=== PATIENT | male | born 1985 | race Caucasian/White ===

== ENCOUNTER 2018-05-19 17:06 | Emergency (ER) | payer SELFPAY ==
[~2018-05-19] VITALS: Ht 160 cm; Wt 50.0 kg
[2018-05-19 17:21] VITALS: Ht 160 cm; Wt 50.0 kg
[2018-05-19] MEDS ORDERED: ADVIL200 MG PO (17:23)
[2018-05-19 18:56] LABS: BASOPHILS 0.6 % (0-2); EOSINOPHILS 3.9 % (0-7); HEMATOCRIT 46.2 % (42.0-54.0); HEMOGLOBIN 15.4 g/dL (13.5-17.5); IMMATURE GRANULOCYTES 0.1 % (0-5); LYMPHOCYTES 42.4 % (15-50); MCH 32.4 pg (26.0-34.0); MCHC 33.3 g/dL (31.0-37.0); MCV 97.1 fL (80.0-100.0); MEAN PLATELET VOLUME 10.7 fL (7.4-10.4); MONOCYTES 6.8 % (2-11); NEUTROPHILS 46.2 % (40-80); PLATELET COUNT 242 10x3/uL (130-400); RBC 4.76 10x6/uL (4.20-6.10); RDW 13.2 % (11.5-14.5); WBC 8.2 10x3/uL (4.8-10.8)
[2018-05-19 19:14] LABS: ALBUMIN 4.1 g/dL (3.4-5.0); ALKALINE PHOSPHATASE 125 U/L (46-116); ALT (SGPT) 22 U/L (10-68); AMYLASE - SERUM 73 U/L (25-115); BILIRUBIN - TOTAL 0.21 mg/dL (0.2-1.3); CALC OSMOLALITY 275 mosm/kg (275-300); CALCIUM 8.8 mg/dL (8.5-10.1); CARBON DIOXIDE 25.9 mmol/L (21.0-32.0); CHLORIDE - SERUM 102 mmol/L (98-107); GLUCOSE 95 mg/dL (74-106); LIPASE 68 U/L (73-393); POTASSIUM - SERUM 4.2 mmol/L (3.5-5.1); PROTEIN - SERUM 7.9 g/dL (6.4-8.2); SODIUM 136 mmol/L (136-145); UREA NITROGEN 24 mg/dL (7-18); eGFR NON AFRICAN AMERICAN > 90 mL/min (90-120)
[2018-05-19 19:15] LABS: APPEARANCE CLEAR (CLEAR); BILIRUBIN NEGATIVE (NEGATIVE); COLOR YELLOW (YELLOW); GLUCOSE NEGATIVE (NEGATIVE); KETONE NEGATIVE (NEGATIVE); NITRITE NEGATIVE (NEGATIVE); PROTEIN NEGATIVE (NEGATIVE); SPECIFIC GRAVITY 1.015 (1.005-1.020); UROBILINOGEN NORMAL (NORMAL)
[2018-05-19 19:18] LABS: BACTERIA FEW /hpf (NONE SEEN); EPITHELIAL CELLS 0-5 /hpf (0-5); RED CELLS - URINE 0-5 /hpf (0-5); WHITE CELLS - URINE 0-5 /hpf (0-5)
[2018-05-19] MEDS ORDERED: PROTONIX40 MG PO (22:37)
[2018-05-19] MEDS ORDERED: ZOFRAN ODT4 MG/UDTAB PO (22:37)
[2018-05-19 23:00] VITALS: BP 132/79
== END 2018-05-19 23:00 | disposition home or self-care (01) ==
LOC: D.ER 17:06
PROVIDERS: Family Medicine
DX: K29.70 Gastritis, unspecified, without bleeding (principal)

== ENCOUNTER 2018-06-05 21:15 | Inpatient (IN) | payer MEDICAID ==
[~2018-06-05] VITALS: Ht 160 cm; Wt 45.0 kg
[~2018-06-05 21:15] MED LIST: ADVIL200 MG PO; PROTONIX40 MG PO; ZOFRAN ODT4 MG/UDTAB PO
--- NOTE | 2018-06-05 21:41 | NUR ---
MARCELO LEE APPLIED TO PT.
--- NOTE | 2018-06-05 22:17 | NUR ---
SANDWICH TRAY AND DRINK PROVIDED TO PT. DENIES ANY OTHER NEEDS AT PRESENT
[2018-06-05 22:26] LABS: BASOPHILS 0.1 % (0-2); EOSINOPHILS 0 % (0-7); HEMATOCRIT 43.2 % (42.0-54.0); HEMOGLOBIN 14.7 g/dL (13.5-17.5); IMMATURE GRANULOCYTES 0.3 % (0-5); LYMPHOCYTES 4.6 % (15-50); MCH 32.3 pg (26.0-34.0); MCV 94.9 fL (80.0-100.0); MEAN PLATELET VOLUME 11.1 fL (7.4-10.4); MONOCYTES 4.1 % (2-11); NEUTROPHILS 90.9 % (40-80); PLATELET COUNT 239 10x3/uL (130-400); RBC 4.55 10x6/uL (4.20-6.10); RDW 13.5 % (11.5-14.5); WBC 17.9 10x3/uL (4.8-10.8)
[2018-06-05 22:43] LABS: ALBUMIN 4.5 g/dL (3.4-5.0); ANION GAP 29.4 mmol/L (8-16); BILIRUBIN - TOTAL 0.67 mg/dL (0.2-1.3); CALCIUM 8.4 mg/dL (8.5-10.1); CARBON DIOXIDE 16.3 mmol/L (21.0-32.0); CREATININE - SERUM 1.7 mg/dL (0.6-1.3); POTASSIUM - SERUM 4.7 mmol/L (3.5-5.1); PROTEIN - SERUM 8.1 g/dL (6.4-8.2)
[2018-06-06 00:31] LABS: CREATINE KINASE 2179 UL (21-232)
[2018-06-06 00:32] LABS: CKMB 20.2 U/L (0.0-3.6)
[2018-06-06 00:50] VITALS: BP 110/75
--- NOTE | 2018-06-06 01:16 | NUR ---
REPORT RECEIVED FROM ALEX LEES.
[2018-06-06 04:55] VITALS: BP 109/63
--- NOTE | 2018-06-06 06:30 | NUR ---
NO CHANGES FROM PREVIOUS ASSESSMENT. CALL LIGHT IN REACH.
[2018-06-06 08:23] VITALS: BP 111/55
--- NOTE | 2018-06-06 10:33 | NUR ---
IV PATENT. CALL LIGHT IN REACH. WILL CONT. PLAN OF CARE.
[2018-06-06 12:42] VITALS: BP 101/62
[2018-06-06 14:54] VITALS: Ht 160 cm; Wt 45.0 kg
[2018-06-06 15:30] VITALS: BP 110/68
[2018-06-06 15:48] LABS: BASOPHILS 0.1 % (0-2); EOSINOPHILS 0.7 % (0-7); HEMATOCRIT 39.3 % (42.0-54.0); HEMOGLOBIN 13.2 g/dL (13.5-17.5); IMMATURE GRANULOCYTES 0.2 % (0-5); LYMPHOCYTES 23.7 % (15-50); MCH 32.2 pg (26.0-34.0); MCHC 33.6 g/dL (31.0-37.0); MCV 95.9 fL (80.0-100.0); MEAN PLATELET VOLUME 11.3 fL (7.4-10.4); MONOCYTES 9.2 % (2-11); NEUTROPHILS 66.1 % (40-80); PLATELET COUNT 224 10x3/uL (130-400); RDW 13.8 % (11.5-14.5)
[2018-06-06 15:54] LABS: WBC 12.1 10x3/uL (4.8-10.8)
[2018-06-06 16:34] LABS: CKMB 28.6 U/L (0.0-3.6); CREATINE KINASE 6113 UL (21-232)
--- NOTE | 2018-06-06 17:57 | MORECARE ---
CASE MANAGEMENT DISCHARGE SUMMARY PATIENT: BERENICE MEDEIROS DON UNIT: [id number] ADM DATE: 06/06/18 AGE: 32 : 89 SEX: M ROOM/BED: D.2131 AUTHOR: MALATHI OSPINA PHYSICIAN: REFERRING PHYSICIAN: GUILLE MARTIN DO DATE OF SERVICE: 06/06/18 Discharge Plan Patient Name: BERENICE MEDEIROS [facility] [facility] 1985 Planned Disposition: Home Anticipated Discharge Date: 06/07/18 Discharge Date: Expected LOS: 1 Initial Reviewer: [email or web address] Initial Review Date: 06/06/2018 Generated: 06/06/18 6:57 pm DCPIA - Discharge Planning Initial Assessment Updated by [email or web address]: Bradly Tolentino on 06/06/18 5:57 pm * Is the patient Alert and Oriented? Yes * How many steps to enter\\exit or inside your home? NONE * PCP NONE * Pharmacy NONE * Preadmission Environment Homeless * Other Environment HOMELESS, REPORTS LIVING IN "[facility]" * Facility Name NONE * ADLs Independent * Equipment None * Other Equipment NO MEDICAL EQUIPMENT PROVIDER PREFERENCE * List name and contact numbers for known caregivers / representatives who currently or will assist patient after discharge: NONE PER PATIENT * Verbal permission to speak to the caregivers and representatives has been obtained from the patient. N/A * Community resources currently utilized None * Please name any agencies selected above. NONE * Additional services required to return to the preadmission environment? No * Can the patient safely return to the preadmission environment? Yes * Has this patient been hospitalized within the prior 30 days at any hospital? No Patient Name: BERENICE MEDEIROS Page [phone] at 1757 All edits/amendments must be made on the electronic document DICTATION DATE: 06/06/181755 PRODUCT DESIGNER: SHANNAN 06/06/181755 RPT#: [id number] DC DATE: STATUS: ADM IN [facility] [address] [place] [address] END OF REPORT
--- NOTE | 2018-06-06 18:10 | MORECARE ---
CASE MANAGEMENT DISCHARGE SUMMARY PATIENT: BERENICE MEDEIROS DON UNIT: [id number] ADM DATE: 06/06/18 AGE: 32 : 89 SEX: M ROOM/BED: D.2137 AUTHOR: BHAVESH,DOC PHYSICIAN: REFERRING PHYSICIAN: GUILLE MARTIN DO DATE OF SERVICE: 06/06/18 Discharge Plan Patient Name: BERENICE MEDEIROS Facility: [facility]:[place] : 1985 Planned Disposition: Home Anticipated Discharge Date: 06/07/18 Discharge Date: Expected LOS: 1 Initial Reviewer: [email or web address] Initial Review Date: 06/06/2018 Generated: 06/06/18 7:10 pm Comments DCP- Discharge Planning Updated by [id number]: Bradly Tolentino on 06/06/18 5:[address] Patient Name: BERENICE MEDEIROS Admission Status: ER Accout number: [id number] Admission Date: 06-06-2018 : 1985 Admission Diagnosis: Attending: GUILLE MARTIN Current LOS: 1 Anticipated DC Date: 06-07-2018 Planned Disposition: Home Primary Insurance: MEDICAID [place] Discharge Planning Comments: CM RECEIVED CONSULT FOR HOMLESSNESS. CM MET WITH PT IN ROOM TO DISCUSS DISCHARGE PLANNING AND NEEDS. PT REPORTS LIVING IN THE [facility] FOR MONTHS, HAS BEEN HOMELESS FOR " A WHILE." PT USES NO MEDICAL EQUIPMENT. PT REPORTS HAVING NO [place] ID AND HE NEEDS TO GET ONE HE HAS A [place] ID NOW. PT DENIES HAVING FUNDS TO ASSIST HIMSELF, PT REPORTS HE HAS NO FAMILY OR FRIENDS TO ASSIST AT DISCHARGE. CM DISCUSSED AVAILABILITY OF INTERMEDIATE AT [facility] IN [place]. PT STATES AWARENESS OF THE INTERMEDIATE, REPORTS "THAT'S LIKE A LONG-TERM". PT WILL NOT RETURN TO THE INTERMEDIATE. CM OFFERED TO LOOK FOR INTERMEDIATE OUTSIDE OF [place], PT REFUSED. PT IS NOT SURE HOW LONG HE WILL BE STAYING IN [place]. CM DISCUSSED EMERGENCY ASSISTANCE, FOOD PANTRY AND HOT MEAL DAILY AT [facility], PT REPORTS HE IS AWARE OF RESOURCE. CM PROVIDED PT WITH [facility] ADDRESS WELL CONTACT FOR [facility] OUT OF POVERTY PROGRAM. PT DID NOT VERBALIZE INTEREST, CM LET INFORMATION ANYWAY. PT HAS NO PRIMARY DOCTOR, BUT DOES HAVE MEDICAID IN [place]. CM PROVIDED [facility] INFORMATION. CM ASKED PT HOW HE IS TRANSPORTING WHEN HE LEAVES, PT REPORTS WALKING BUT HE HAS NO SHOES AND WEARS SIZE 9. CM WILL PROVIDE PT WITH A BUS PASS AT DISCHARGE. PT HAS DECLINED INTERMEDIATE PLACEMENT ASSISTANCE, REFUSES TO STAY AT THE [facility] SAYING IT IS LIKE A LONG-TERM. CM PROVIDED PT WITH LOCAL RESOURCE INFORMATION. CM TO FOLLOW AND ASSIST NEEDED. Permastone Installer: Bradly Tolentino DCPIA - Discharge Planning Initial Assessment Updated by [id number]: Bradly Tolentino on 06/06/18 5:57 pm * Is the patient Alert and Oriented? Yes * How many steps to enter\\exit or inside your home? NONE * PCP NONE * Pharmacy NONE * Preadmission Environment Homeless * Other Environment HOMELESS, REPORTS LIVING IN "[facility]" * Facility Name NONE * ADLs Independent * Equipment None * Other Equipment NO MEDICAL EQUIPMENT PROVIDER PREFERENCE * List name and contact numbers for known caregivers / representatives who currently or will assist patient after discharge: NONE PER PATIENT * Verbal permission to speak to the caregivers and representatives has been obtained from the patient. N/A * Community resources currently utilized None * Please name any agencies selected above. NONE * Additional services required to return to the preadmission environment? No * Can the patient safely return to the preadmission environment? Yes * Has this patient been hospitalized within the prior 30 days at any hospital? No Last DP export: 06/06/18 4:57 p Patient Name: BERENICE MEDEIROS Page [phone] at 1810 All edits/amendments must be made on the electronic document DICTATION DATE: 06/06/181808 SKIMMER REVERBERATORY: SHANNAN 06/06/181808 RPT#: [id number] [place] DATE: STATUS: ADM IN [facility] [address] [place] [address] END OF REPORT
--- NOTE | 2018-06-06 19:15 | NUR ---
RESUMING CARE. PT LAYING IN BED A&O RR EVEN/UNLABORED, LFT AC WITH NS @125, ON RA NO C/O PAIN OR DISTRESS NOTED CL IN REACH WILL CONT TO MONITOR
[2018-06-06 20:00] VITALS: BP 108/72
[2018-06-07] VITALS: BP 101/53
--- NOTE | 2018-06-07 02:55 | NUR ---
LYING IN BED, CALL LIGHT IN REACH. WILL CONTINUE WITH PLAN OF CARE. 83 SR ON TELEMETRY
--- NOTE | 2018-06-07 04:13 | NUR ---
RESITED IV TO RT FA
--- NOTE | 2018-06-07 07:10 | NUR ---
REPORT RECEIVED FROM LEGAL LIBRARIAN. PATIENT LAYING IN BED WITH EYES CLOSED AND BREATHING EVENLY. SR UP X 2 BED IN LOW POSITON AND CALL LIGHT IN REACH. WILL CONTINUE WITH PLAN OF CARE.
--- NOTE | 2018-06-07 07:15 | NUR ---
REPORT RECIEVED FROM TOWNSHIP SUPERVISOR. PATIENT LAYING IN BED WITH EYES CLOSED AND BREATHING EVENLY. SR UP X 2 . BED IN LOW PSOTION AND CALL LIGHT IN REACH.
[2018-06-07 07:51] LABS: BASOPHILS 0.4 % (0-2); EOSINOPHILS 2.3 % (0-7); HEMATOCRIT 34.3 % (42.0-54.0); HEMOGLOBIN 11.3 g/dL (13.5-17.5); IMMATURE GRANULOCYTES 0.1 % (0-5); LYMPHOCYTES 47.5 % (15-50); MCH 31.5 pg (26.0-34.0); MCHC 32.9 g/dL (31.0-37.0); MCV 95.5 fL (80.0-100.0); NEUTROPHILS 37.7 % (40-80); PLATELET COUNT 196 10x3/uL (130-400); RBC 3.59 10x6/uL (4.20-6.10); RDW 13.8 % (11.5-14.5)
[2018-06-07 08:14] VITALS: BP 107/68
[2018-06-07 08:14] LABS: WBC 7.4 10x3/uL (4.8-10.8)
--- NOTE | 2018-06-07 08:41 | MORECARE ---
CASE MANAGEMENT DISCHARGE SUMMARY PATIENT: BERENICE MEDEIROS DON UNIT: [id number] ADM DATE: 06/06/18 AGE: 32 : 89 SEX: M ROOM/BED: D.2132 AUTHOR: MALATHI OSPINA PHYSICIAN: REFERRING PHYSICIAN: GUILLE MARTIN DO DATE OF SERVICE: 06/07/18 Discharge Plan Patient Name: BERENICE MEDEIROS Facility: [facility]:[place] : 1985 Planned Disposition: Home Anticipated Discharge Date: 06/07/18 Discharge Date: Expected LOS: 1 Initial Reviewer: [email or web address] Initial Review Date: 06/06/2018 Generated: 06/07/18 9:41 am Comments DCP- Discharge Planning Updated by [email or web address]: Bradly Tolentino on 06/07/18 7:[address] Patient Name: BERENICE MEDEIROS Encounter No: [id number] : 1985 Primary Insurance: MEDICAID [place] Anticipated DC Date: 06-07-2018 Planned Disposition: Home DCP follow-up note: CM SPOKE TO PT IN ROOM REGARDING DISCHARGE PLANNING. PT IS STILL REFUSING DETENTION PLACEMENT OUT OF [place] AREA AND WILL NOT GO TO [facility]. PT IS AWARE OF LOCAL DETENTION AND RESOURCES AVAILABLE TO HIM. PT REPORTS PLAN OF CONTINUED HOMELESSNESS AT DISCHARGE. PT DOES NOT HAVE AN INCOME, DOES NOT RECEIVE FOOD STAMPS, DISABILITY OR UNEMPLOYMENT. PT IS NOT EMPLOYED. PT REPORTS HE LIVES WITH WHAT HE CAN GET FROM LOCAL ORGANIZATIONS. PT HAS BEEN PROVIDED WITH LOCAL NEWSPAPER FOR TODAY. CM PROVIDED PT WITH A PAIR OF SHOES PT REPORTED HE HAS NONE. CM PROVIDED PT WITH AN OLD BUT SERVICEABLE UMBRELLA AND THREE LARGE TRASH BAGS. CM EXPLAINED HOW TO USE PLASTIC BAGS FOR A RAIN PONCHO, DETENTION SHYLA AND DETENTION DAVE IF NEEDED. CM PROVIDED ONE BUS PASS SO PT CAN GET BACK TO [facility] [place] AND COMMUNITY RESOURCE ORGANIZATIONS THAT PT IS UTILIZING AT DISCHARGE. PT DOES HAVE [place] MEDICAID. PT REFUSES DETENTION PLACEMENT. PT IS AWARE OF COMMUNITY RESOURCES. CM HAS PROVIDED PT WITH INFORMATION AND MATERIALS TO ASSIST HIMSELF. NO FURHTER DISCHARGE NEEDS IDENTIFIED AT THIS TIME. Bradly Tolentino, CASE MANAGEMENT DCP- Discharge Planning Updated by [id number]: Bradly Tolentino on 06/06/18 5:[address] Patient Name: BERENICE MEDEIROS Admission Status: ER Accout number: [id number] Admission Date: 06-06-2018 : 1985 Admission Diagnosis: Attending: GUILLE MARTIN Current LOS: 1 Anticipated DC Date: 06-07-2018 Planned Disposition: Home Primary Insurance: MEDICAID [place] Discharge Planning Comments: CM RECEIVED CONSULT FOR HOMLESSNESS. CM MET WITH PT IN ROOM TO DISCUSS DISCHARGE PLANNING AND NEEDS. PT REPORTS LIVING IN THE [facility] FOR MONTHS, HAS BEEN HOMELESS FOR " A WHILE." PT USES NO MEDICAL EQUIPMENT. PT REPORTS HAVING NO [place] ID AND HE NEEDS TO GET ONE HE HAS A [place] ID NOW. PT DENIES HAVING FUNDS TO ASSIST HIMSELF, PT REPORTS HE HAS NO FAMILY OR FRIENDS TO ASSIST AT DISCHARGE. CM DISCUSSED AVAILABILITY OF DETENTION AT [facility] IN [place]. PT STATES AWARENESS OF THE DETENTION, REPORTS "THAT'S LIKE A SNF". PT WILL NOT RETURN TO THE DETENTION. CM OFFERED TO LOOK FOR DETENTION OUTSIDE OF [place], PT REFUSED. PT IS NOT SURE HOW LONG HE WILL BE STAYING IN [place]. CM DISCUSSED EMERGENCY ASSISTANCE, FOOD PANTRY AND HOT MEAL DAILY AT [facility], PT REPORTS HE IS AWARE OF RESOURCE. CM PROVIDED PT WITH [facility] ADDRESS WELL CONTACT FOR [facility] OUT OF POVERTY PROGRAM. PT DID NOT VERBALIZE INTEREST, CM LET INFORMATION ANYWAY. PT HAS NO PRIMARY DOCTOR, BUT DOES HAVE MEDICAID IN [place]. CM PROVIDED [facility] INFORMATION. CM ASKED PT HOW HE IS TRANSPORTING WHEN HE LEAVES, PT REPORTS WALKING BUT HE HAS NO SHOES AND WEARS SIZE 9. CM WILL PROVIDE PT WITH A BUS PASS AT DISCHARGE. PT HAS DECLINED DETENTION PLACEMENT ASSISTANCE, REFUSES TO STAY AT THE [facility] SAYING IT IS LIKE A SNF. CM PROVIDED PT WITH LOCAL RESOURCE INFORMATION. CM TO FOLLOW AND ASSIST NEEDED. Prototype Engineer: Bradly Tolentino DCPIA - Discharge Planning Initial Assessment Updated by [id number]: Bradly Tolentino on 06/06/18 5:57 pm * Is the patient Alert and Oriented? Yes * How many steps to enter\\exit or inside your home? NONE * PCP NONE * Pharmacy NONE * Preadmission Environment Homeless * Other Environment HOMELESS, REPORTS LIVING IN "[facility]" * Facility Name NONE * ADLs Independent * Equipment None * Other Equipment NO MEDICAL EQUIPMENT PROVIDER PREFERENCE * List name and contact numbers for known caregivers / representatives who currently or will assist patient after discharge: NONE PER PATIENT * Verbal permission to speak to the caregivers and representatives has been obtained from the patient. N/A * Community resources currently utilized None * Please name any agencies selected above. NONE * Additional services required to return to the preadmission environment? No * Can the patient safely return to the preadmission environment? Yes * Has this patient been hospitalized within the prior 30 days at any hospital? No Last DP export: 06/06/18 5:10 p Patient Name: BERENICE MEDEIROS Page [phone] at 0841 All edits/amendments must be made on the electronic document DICTATION DATE: 06/07/18840 OUTBOUND SALES CONSULTANT: SHANNAN 06/07/18840 RPT#: [id number] DC DATE: STATUS: ADM IN [facility] [address] [place] [address] END OF REPORT
--- NOTE | 2018-06-07 09:45 | NUR ---
PATIENT UP TO SHOWER. TOLERATED WELL. PATIENT DENIES ANY PAIN OR NEEDS. WILL CONTINUE TO MONITOR.
[2018-06-07 11:12] LABS: ALKALINE PHOSPHATASE 78 U/L (46-116); BILIRUBIN - TOTAL 0.51 mg/dL (0.2-1.3); CALCIUM 7.3 mg/dL (8.5-10.1); CHLORIDE - SERUM 110 mmol/L (98-107); GLUCOSE 78 mg/dL (74-106); MAGNESIUM - SERUM 1.7 mg/dL (1.8-2.4); POTASSIUM - SERUM 4.4 mmol/L (3.5-5.1); SODIUM 143 mmol/L (136-145)
[2018-06-07 11:13] LABS: CALC OSMOLALITY 284 mosm/kg (275-300); CARBON DIOXIDE 23.9 mmol/L (21.0-32.0); CREATININE - SERUM 1.1 mg/dL (0.6-1.3); UREA NITROGEN 16 mg/dL (7-18); eGFR NON AFRICAN AMERICAN 83 mL/min (90-120)
[2018-06-07 11:14] LABS: ALBUMIN 2.9 g/dL (3.4-5.0); ALT (SGPT) 59 U/L (10-68); CREATINE KINASE 3678 UL (21-232); PROTEIN - SERUM 5.4 g/dL (6.4-8.2)
[2018-06-07 11:15] LABS: CKMB 10.4 U/L (0.0-3.6)
[2018-06-07 11:41] VITALS: BP 110/69
--- NOTE | 2018-06-07 14:00 | NUR ---
PATIENT UCHANGED. VITAL SIGNS GOOD.
[2018-06-07 15:04] VITALS: BP 109/66
--- NOTE | 2018-06-07 19:25 | NUR ---
INTRODUCED SELF TO PATIENT, PATIENT RESTING ON RIGHT SIDE STATES THAT HE'S IN PAIN AND HIS HAND KEEPS SHAKING. ADVISED PATIENT WILL CHECK FOR LAST PAIN MED. RESP EVEN AND UNLABORED. BED IN LOWEST POSITION, CALL LIGHT WITHIN REACH.
[2018-06-07 21:18] VITALS: BP 117/63
[2018-06-08 01:42] VITALS: BP 106/62
--- NOTE | 2018-06-08 04:53 | NUR ---
PATIENT RESTING QUIETLY, RESP EVEN AND UNLABORED. BED IN LOWEST POSITION, CALL LIGHT WITHIN REACH. NO NEEDS AT THIS TIME.
[2018-06-08 05:22] VITALS: BP 104/57
[2018-06-08 06:35] LABS: BASOPHILS 0.4 % (0-2); EOSINOPHILS 3.3 % (0-7); HEMATOCRIT 38.7 % (42.0-54.0); HEMOGLOBIN 12.7 g/dL (13.5-17.5); IMMATURE GRANULOCYTES 0.1 % (0-5); LYMPHOCYTES 51.4 % (15-50); MCH 31.8 pg (26.0-34.0); MCHC 32.8 g/dL (31.0-37.0); MCV 96.8 fL (80.0-100.0); MEAN PLATELET VOLUME 11.3 fL (7.4-10.4); MONOCYTES 9.5 % (2-11); NEUTROPHILS 35.3 % (40-80); PLATELET COUNT 193 10x3/uL (130-400); RDW 13.9 % (11.5-14.5); WBC 6.8 10x3/uL (4.8-10.8)
[2018-06-08 07:23] LABS: ALBUMIN 2.8 g/dL (3.4-5.0); ALKALINE PHOSPHATASE 80 U/L (46-116); ALT (SGPT) 58 U/L (10-68); BILIRUBIN - TOTAL 0.39 mg/dL (0.2-1.3); CALC OSMOLALITY 285 mosm/kg (275-300); CALCIUM 7.7 mg/dL (8.5-10.1); CARBON DIOXIDE 25.8 mmol/L (21.0-32.0); CHLORIDE - SERUM 107 mmol/L (98-107); GLUCOSE 91 mg/dL (74-106); MAGNESIUM - SERUM 1.8 mg/dL (1.8-2.4); POTASSIUM - SERUM 4.3 mmol/L (3.5-5.1); PROTEIN - SERUM 5.7 g/dL (6.4-8.2); SODIUM 143 mmol/L (136-145); UREA NITROGEN 16 mg/dL (7-18)
[2018-06-08 07:25] LABS: CREATINE KINASE 1861 UL (21-232); CREATININE - SERUM 0.8 mg/dL (0.6-1.3); eGFR NON AFRICAN AMERICAN > 90 mL/min (90-120)
[2018-06-08 07:50] VITALS: BP 120/69
--- NOTE | 2018-06-08 08:02 | NUR ---
PT ASLEEP, DID NOT WAKE I ENTERED. DID NOT FURTHER DISTURB AT THIS TIME. CL IN REACH. SRX2.
--- NOTE | 2018-06-08 08:54 | NUR ---
CALLED INTO PTS ROOM. STATES HE IS HAVING CHEST PAIN AT HEART LEVEL AND BELOW. PT HAS AT LEAST 6 SODAS (REGULAR COKES) AT BEDSIDE THAT HE HAS DRANK. MORE IN TRASH. PT HAS BEEN EATING MASS AMOUNTS OF FOOD FREQUENTLY DURING HIS STAY WELL. HE IS 70S SR ON THE MONITOR. LYING IWTH EYES CLOSED WHILE HE TALKS TO BE, DOES NOT EXHIBIT S/S OF ACUTE DISTRESS. CALLED NATALI.
[2018-06-08 10:00] LABS: CKMB 3.3 U/L (0.0-3.6)
[2018-06-08 10:01] LABS: CREATINE KINASE 1798 UL (21-232); TROPONIN-I < 0.017 ng/mL (0.000-0.060)
[2018-06-08 13:43] VITALS: BP 119/67
--- NOTE | 2018-06-08 14:06 | NUR ---
RESTING QUIETLY NAD NOTED
--- NOTE | 2018-06-08 20:00 | NUR ---
INITIAL ROUNDS AND ASSESSMENT COMPLETED. SR PER TELEMETRY. NONLABORED RESPIRATIONS ON ROOM AIR. IV TO RFA SALINE LOCKED. PT WANTING TO TAKE A SHOWER. PROVIDED BATHING SUPPLIES/GOWN AND PT NOW SHOWERING. MONITOR AND CPOC.
[2018-06-08 20:30] VITALS: BP 118/64
--- NOTE | 2018-06-08 23:55 | NUR ---
RESTING IN BED WITH NO DISTRESS. RESPS NONLABORED. CALL LIGHT IN REACH. MONITOR AND CPOC.
[2018-06-09 00:30] VITALS: BP 127/70
[2018-06-09 04:30] VITALS: BP 113/67
[2018-06-09 06:29] LABS: BASOPHILS 0.7 % (0-2); EOSINOPHILS 4.4 % (0-7); HEMATOCRIT 43.9 % (42.0-54.0); HEMOGLOBIN 14.6 g/dL (13.5-17.5); IMMATURE GRANULOCYTES 0.1 % (0-5); MCH 32.2 pg (26.0-34.0); MCHC 33.3 g/dL (31.0-37.0); MCV 96.7 fL (80.0-100.0); MEAN PLATELET VOLUME 11.5 fL (7.4-10.4); MONOCYTES 9.3 % (2-11); NEUTROPHILS 42.5 % (40-80); RBC 4.54 10x6/uL (4.20-6.10); RDW 13.6 % (11.5-14.5); WBC 6.9 10x3/uL (4.8-10.8)
[2018-06-09 06:42] LABS: PLATELET COUNT 250 10x3/uL (130-400)
[2018-06-09 07:15] LABS: ALBUMIN 3.4 g/dL (3.4-5.0); ALKALINE PHOSPHATASE 98 U/L (46-116); ALT (SGPT) 63 U/L (10-68); BILIRUBIN - TOTAL 0.26 mg/dL (0.2-1.3); CALC OSMOLALITY 281 mosm/kg (275-300); CALCIUM 8.4 mg/dL (8.5-10.1); CARBON DIOXIDE 27.1 mmol/L (21.0-32.0); CHLORIDE - SERUM 102 mmol/L (98-107); GLUCOSE 103 mg/dL (74-106); MAGNESIUM - SERUM 2.1 mg/dL (1.8-2.4); POTASSIUM - SERUM 4.5 mmol/L (3.5-5.1); SODIUM 140 mmol/L (136-145); UREA NITROGEN 20 mg/dL (7-18); eGFR NON AFRICAN AMERICAN > 90 mL/min (90-120)
[2018-06-09 07:17] LABS: CKMB 1.5 U/L (0.0-3.6); CREATINE KINASE 760 UL (21-232)
[2018-06-09 07:25] VITALS: BP 109/74
--- NOTE | 2018-06-09 18:28 | NUR ---
ALERT AND ORIENTED X4. SITTING UP IN BED. NO CHANGE. CONTINUE PLAN OF CARE AND SAFETY PRECAUTIONS.
--- NOTE | 2018-06-09 19:23 | NUR ---
RECIEVED LAYING IN BED WITH EYES CLOSED. EASILY AROUSES WITH VERBAL STIMULI. ORIENTED X4. IV TO RIGHT FA WITH NS AT KVO. UP AD FELICITAS. TELEMETRY IN PLACE. WILL CONT POC.
[2018-06-09 21:41] VITALS: BP 122/63
[2018-06-10 00:43] VITALS: BP 113/63
[2018-06-10 04:17] VITALS: BP 116/61
[2018-06-10 05:53] LABS: BASOPHILS 0.7 % (0-2); EOSINOPHILS 5.4 % (0-7); HEMATOCRIT 42.2 % (42.0-54.0); HEMOGLOBIN 13.8 g/dL (13.5-17.5); IMMATURE GRANULOCYTES 0.1 % (0-5); LYMPHOCYTES 36.9 % (15-50); MCH 32.1 pg (26.0-34.0); MCHC 32.7 g/dL (31.0-37.0); MCV 98.1 fL (80.0-100.0); MEAN PLATELET VOLUME 11.3 fL (7.4-10.4); MONOCYTES 8.8 % (2-11); NEUTROPHILS 48.1 % (40-80); PLATELET COUNT 249 10x3/uL (130-400); RDW 13.9 % (11.5-14.5); WBC 6.8 10x3/uL (4.8-10.8)
[2018-06-10 06:33] LABS: ALBUMIN 3.1 g/dL (3.4-5.0); ALKALINE PHOSPHATASE 93 U/L (46-116); ALT (SGPT) 70 U/L (10-68); BILIRUBIN - TOTAL 0.19 mg/dL (0.2-1.3); CALC OSMOLALITY 277 mosm/kg (275-300); CALCIUM 8.1 mg/dL (8.5-10.1); CARBON DIOXIDE 26.4 mmol/L (21.0-32.0); CHLORIDE - SERUM 101 mmol/L (98-107); GLUCOSE 100 mg/dL (74-106); MAGNESIUM - SERUM 1.8 mg/dL (1.8-2.4); POTASSIUM - SERUM 4.4 mmol/L (3.5-5.1); PROTEIN - SERUM 6.6 g/dL (6.4-8.2); SODIUM 137 mmol/L (136-145); UREA NITROGEN 25 mg/dL (7-18); eGFR NON AFRICAN AMERICAN > 90 mL/min (90-120)
[2018-06-10 06:35] LABS: CKMB 0.4 U/L (0.0-3.6); CREATINE KINASE 256 UL (21-232)
[2018-06-10 07:45] VITALS: BP 116/67
[2018-06-10 13:18] VITALS: BP 118/67
--- NOTE | 2018-06-10 13:30 | NUR ---
Nutrition follow-up: Diet: Regular PO intake 100% of meals Labs reviewed Wt: 99# PO intake good at this time; pt eating a lot of food; food preferences being honored. RDN following.
[2018-06-10] MEDS ORDERED: NEURONTIN 300300 MG PO (14:27)
[2018-06-10] MEDS ORDERED: PROTONIX40 MG PO (14:27)
--- NOTE | 2018-06-10 16:39 | MORECARE ---
CASE MANAGEMENT DISCHARGE SUMMARY PATIENT: BERENICE MEDEIROS DON UNIT: [id number] ADM DATE: 06/06/18 AGE: 32 : 89 SEX: M ROOM/BED: D.2131 AUTHOR: BHAVESHDOC PHYSICIAN: REFERRING PHYSICIAN: GUILLE MARTIN DO DATE OF SERVICE: 06/10/18 Discharge Plan Patient Name: BERENICE MEDEIROS Facility: [facility]:[place] : 1985 Planned Disposition: Home Anticipated Discharge Date: 06/07/18 Discharge Date: Expected LOS: 1 Initial Reviewer: [email or web address] Initial Review Date: 06/06/2018 Generated: 06/10/18 5:39 pm Comments DCP- Discharge Planning Updated by [email or web address]: Nay Corrales on 06/10/18 3:[address] PATIENTS BEDSIDE NURSE CAME TO ME ASKING FOR A LETTER FOR THE PATIENT STATING THAT WE PUT HIM ON KLONOPIN AND ULTRAM HERE AT THE HOSPITAL BECAUSE HE WILL NEED THAT FOR 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 I PROVIDED A NOTICE LETTER AND HAND WROTE THAT THE PATIENT WAS ON THE FOLLOWING MEDS, THE LAST TIME THEY WERE TAKEN, WHAT THEY WERE ORDERED FOR, AND THAT THEY WERE NOT PRESCRIBED FOR THE PATIENT ON DISCHARGE. I SIGNED MY NAME, CREDENTIALS, AND CONTACT NUMBER FOR QUESTIONS. I ALSO NOTED FOR THE PATIENT THAT A COPY OF THE LETTER WAS PLACED IN HIS CHART. THIS PATIENT IS NOT WANTING TO LEAVE THE HOSPITAL DUE TO BEING HOMELESS, BUT HIS MULTISENSOR INTELLIGENCE OFFICER COULD ASSIST IN CHANGING THAT IF HE ASKED. DCP- Discharge Planning Updated by [id number]: Bradly Tolentino on 06/07/18 7:[address] Patient Name: BERENICE MEDEIROS Encounter No: [id number] : 1985 Primary Insurance: MEDICAID [place] Anticipated DC Date: 06-07-2018 Planned Disposition: Home DCP follow-up note: CM SPOKE TO PT IN ROOM REGARDING DISCHARGE PLANNING. PT IS STILL REFUSING RETIREMENT PLACEMENT OUT OF [facility] AND WILL NOT GO TO [facility]. PT IS AWARE OF LOCAL RETIREMENT AND RESOURCES AVAILABLE TO HIM. PT REPORTS PLAN OF CONTINUED HOMELESSNESS AT DISCHARGE. PT DOES NOT HAVE AN INCOME, DOES NOT RECEIVE FOOD STAMPS, DISABILITY OR UNEMPLOYMENT. PT IS NOT EMPLOYED. PT REPORTS HE LIVES WITH WHAT HE CAN GET FROM LOCAL ORGANIZATIONS. PT HAS BEEN PROVIDED WITH LOCAL NEWSPAPER FOR TODAY. CM PROVIDED PT WITH A PAIR OF SHOES PT REPORTED HE HAS NONE. CM PROVIDED PT WITH AN OLD BUT SERVICEABLE UMBRELLA AND THREE LARGE TRASH BAGS. CM EXPLAINED HOW TO USE PLASTIC BAGS FOR A RAIN PONCHO, RETIREMENT SHYLA AND RETIREMENT DAVE IF NEEDED. CM PROVIDED ONE BUS PASS SO PT CAN GET BACK TO [facility] AND COMMUNITY RESOURCE ORGANIZATIONS THAT PT IS UTILIZING AT DISCHARGE. PT DOES HAVE [place] MEDICAID. PT REFUSES RETIREMENT PLACEMENT. PT IS AWARE OF COMMUNITY RESOURCES. CM HAS PROVIDED PT WITH INFORMATION AND MATERIALS TO ASSIST HIMSELF. NO FURHTER DISCHARGE NEEDS IDENTIFIED AT THIS TIME. Bradly Tolentino, CASE MANAGEMENT DCP- Discharge Planning Updated by [email or web address]: Bradly Tolentino on 06/06/18 5:[address] Patient Name: BERENICE MEDEIROS Admission Status: ER Accout number: [id number] Admission Date: 06-06-2018 : 1985 Admission Diagnosis: Attending: GUILLE MARTIN Current LOS: 1 Anticipated DC Date: 06-07-2018 Planned Disposition: Home Primary Insurance: MEDICAID [place] Discharge Planning Comments: CM RECEIVED CONSULT FOR HOMLESSNESS. CM MET WITH PT IN ROOM TO DISCUSS DISCHARGE PLANNING AND NEEDS. PT REPORTS LIVING IN THE [facility] FOR MONTHS, HAS BEEN HOMELESS FOR " A WHILE." PT USES NO MEDICAL EQUIPMENT. PT REPORTS HAVING NO [place] ID AND HE NEEDS TO GET ONE HE HAS A [place] ID NOW. PT DENIES HAVING FUNDS TO ASSIST HIMSELF, PT REPORTS HE HAS NO FAMILY OR FRIENDS TO ASSIST AT DISCHARGE. CM DISCUSSED AVAILABILITY OF RETIREMENT AT [facility] IN [place]. PT STATES AWARENESS OF THE RETIREMENT, REPORTS "THAT'S LIKE A ALF". PT WILL NOT RETURN TO THE RETIREMENT. CM OFFERED TO LOOK FOR RETIREMENT OUTSIDE OF [place], PT REFUSED. PT IS NOT SURE HOW LONG HE WILL BE STAYING IN [place]. CM DISCUSSED EMERGENCY ASSISTANCE, FOOD PANTRY AND HOT MEAL DAILY AT [facility], PT REPORTS HE IS AWARE OF RESOURCE. CM PROVIDED PT WITH [facility] ADDRESS WELL CONTACT FOR [facility] OUT OF [place]. PT DID NOT VERBALIZE INTEREST, CM LET INFORMATION ANYWAY. PT HAS NO PRIMARY DOCTOR, BUT DOES HAVE MEDICAID IN [place]. CM PROVIDED [facility] INFORMATION. CM ASKED PT HOW HE IS TRANSPORTING WHEN HE LEAVES, PT REPORTS WALKING BUT HE HAS NO SHOES AND WEARS SIZE 9. CM WILL PROVIDE PT WITH A BUS PASS AT DISCHARGE. PT HAS DECLINED RETIREMENT PLACEMENT ASSISTANCE, REFUSES TO STAY AT THE [facility] SAYING IT IS LIKE A ALF. CM PROVIDED PT WITH LOCAL RESOURCE INFORMATION. CM TO FOLLOW AND ASSIST NEEDED. Lace Burn Out Tender: Bradly Tolentino DCPIA - Discharge Planning Initial Assessment Updated by [email or web address]: Bradly Tolentino on 06/06/18 5:57 pm * Is the patient Alert and Oriented? Yes * How many steps to enter\\exit or inside your home? NONE * PCP NONE * Pharmacy NONE * Preadmission Environment Homeless * Other Environment HOMELESS, REPORTS LIVING IN "[facility]" * Facility Name NONE * ADLs Independent * Equipment None * Other Equipment NO MEDICAL EQUIPMENT PROVIDER PREFERENCE * List name and contact numbers for known caregivers / representatives who currently or will assist patient after discharge: NONE PER PATIENT * Verbal permission to speak to the caregivers and representatives has been obtained from the patient. N/A * Community resources currently utilized None * Please name any agencies selected above. NONE * Additional services required to return to the preadmission environment? No * Can the patient safely return to the preadmission environment? Yes * Has this patient been hospitalized within the prior 30 days at any hospital? No Last DP export: 06/07/18 7:41 a Patient Name: BERENICE MEDEIROS Page [id number] at 1639 All edits/amendments must be made on the electronic document DICTATION DATE: 06/10/181637 VICE PRESIDENT FOR PHILANTHROPY: SHANNAN 06/10/181637 RPT#: [id number] [place] DATE: STATUS: ADM IN [facility] [address] [place] [address] END OF REPORT
--- NOTE | 2018-06-10 17:13 | NUR ---
ALERT AND ORIENTED X4. SITTING UP IN BED. DC RT FA IV TIP INTACT. DISCHARGE INSTRUCTIONS PROVIDED VERBALLY AND WRITTEN. DISCHARGE PAPERS SIGNED ON CHART. ESCORT TO FRONT DOOR VIA WHEELCHAIR. REMAINS FREE FROM INJURY.
--- NOTE | 2018-06-11 08:04 | MORECARE ---
CASE MANAGEMENT DISCHARGE SUMMARY PATIENT: BERENICE MEDEIROS DON UNIT: [id number] ADM DATE: 06/06/18 AGE: 32 : 89 SEX: M ROOM/BED: D.2131 AUTHOR: BHAVESHDOC PHYSICIAN: REFERRING PHYSICIAN: GUILLE MARTIN DO DATE OF SERVICE: 06/11/18 Discharge Plan Patient Name: BERENICE MEDEIROS Facility: [facility]:[place] : 1985 Planned Disposition: Home Anticipated Discharge Date: 06/11/18 Discharge Date: 06/10/2018 Expected LOS: 5 Initial Reviewer: [id number] Initial Review Date: 06/06/2018 Generated: 06/11/18 9:03 am Comments DCP- Discharge Planning Updated by [id number]: Nay Corrales on 06/10/18 3:[address] PATIENTS BEDSIDE NURSE CAME TO ME ASKING FOR A LETTER FOR THE PATIENT STATING THAT WE PUT HIM ON KLONOPIN AND ULTRAM HERE AT THE HOSPITAL BECAUSE 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 I PROVIDED A NOTICE LETTER AND HAND WROTE THAT THE PATIENT WAS ON THE FOLLOWING MEDS, THE LAST TIME THEY WERE TAKEN, WHAT THEY WERE ORDERED FOR, AND THAT THEY WERE NOT PRESCRIBED FOR THE PATIENT ON DISCHARGE. I SIGNED MY NAME, CREDENTIALS, AND CONTACT NUMBER FOR QUESTIONS. I ALSO NOTED FOR THE PATIENT THAT A COPY OF THE LETTER WAS PLACED IN HIS CHART. THIS PATIENT IS NOT WANTING TO LEAVE THE HOSPITAL DUE TO BEING HOMELESS, BUT HIS HEAD SCREEN WORKER COULD ASSIST IN CHANGING THAT IF HE ASKED. DCP- Discharge Planning Updated by [id number]: Bradly Tolentino on 06/07/18 7:[address] Patient Name: BERENICE MEDEIROS Encounter No: [id number] : 1985 Primary Insurance: MEDICAID [place] Anticipated DC Date: 06-07-2018 Planned Disposition: Home DCP follow-up note: CM SPOKE TO PT IN ROOM REGARDING DISCHARGE PLANNING. PT IS STILL REFUSING LONG-TERM PLACEMENT OUT OF [facility] AND WILL NOT GO TO [facility]. PT IS AWARE OF LOCAL LONG-TERM AND RESOURCES AVAILABLE TO HIM. PT REPORTS PLAN OF CONTINUED HOMELESSNESS AT DISCHARGE. PT DOES NOT HAVE AN INCOME, DOES NOT RECEIVE FOOD STAMPS, DISABILITY OR UNEMPLOYMENT. PT IS NOT EMPLOYED. PT REPORTS HE LIVES WITH WHAT HE CAN GET FROM LOCAL ORGANIZATIONS. PT HAS BEEN PROVIDED WITH LOCAL NEWSPAPER FOR TODAY. CM PROVIDED PT WITH A PAIR OF SHOES PT REPORTED HE HAS NONE. CM PROVIDED PT WITH AN OLD BUT SERVICEABLE UMBRELLA AND THREE LARGE TRASH BAGS. CM EXPLAINED HOW TO USE PLASTIC BAGS FOR A RAIN PONCHO, LONG-TERM SHYLA AND LONG-TERM DAVE IF NEEDED. CM PROVIDED ONE BUS PASS SO PT CAN GET BACK TO [facility] THAT PT IS UTILIZING AT DISCHARGE. PT DOES HAVE [place] MEDICAID. PT REFUSES LONG-TERM PLACEMENT. PT IS AWARE OF COMMUNITY RESOURCES. CM HAS PROVIDED PT WITH INFORMATION AND MATERIALS TO ASSIST HIMSELF. NO FURHTER DISCHARGE NEEDS IDENTIFIED AT THIS TIME. Bradly Tolentino, CASE MANAGEMENT DCP- Discharge Planning Updated by [id number]: Bradly Tolentino on 06/06/18 5:[address] Patient Name: BERENICE MEDEIROS Admission Status: ER Accout number: [id number] Admission Date: 06-06-2018 : 1985 Admission Diagnosis: Attending: GUILLE MARTIN Current LOS: 1 Anticipated DC Date: 06-07-2018 Planned Disposition: Home Primary Insurance: MED[place]ID [place] Discharge Planning Comments: CM RECEIVED CONSULT FOR HOMLESSNESS. CM MET WITH PT IN ROOM TO DISCUSS DISCHARGE PLANNING AND NEEDS. PT REPORTS LIVING IN [facility] FOR MONTHS, HAS BEEN HOMELESS FOR " A WHILE." PT USES NO MEDICAL EQUIPMENT. PT REPORTS HAVING NO [place] ID AND HE NEEDS TO GET ONE HE HAS A [place] ID NOW. PT DENIES HAVING FUNDS TO ASSIST HIMSELF, PT REPORTS HE HAS NO FAMILY OR FRIENDS TO ASSIST AT DISCHARGE. CM DISCUSSED AVAILABILITY OF LONG-TERM AT [facility] IN [place]. PT STATES AWARENESS OF THE LONG-TERM, REPORTS "THAT'S LIKE A CORRECTION". PT WILL NOT RETURN TO THE LONG-TERM. CM OFFERED TO LOOK FOR LONG-TERM OUTSIDE OF [place], PT REFUSED. PT IS NOT SURE HOW LONG HE WILL BE STAYING IN [place]. CM DISCUSSED EMERGENCY ASSISTANCE, FOOD PANTRY AND HOT MEAL DAILY AT [facility], PT REPORTS HE IS AWARE OF RESOURCE. CM PROVIDED PT WITH [facility] ADDRESS WELL CONTACT FOR [facility] OUT OF POVERTY PROGRAM. PT DID NOT VERBALIZE INTEREST, CM LET INFORMATION ANYWAY. PT HAS NO PRIMARY DOCTOR, BUT DOES HAVE MEDICAID IN [place]. CM PROVIDED [facility] INFORMATION. CM ASKED PT HOW HE IS TRANSPORTING WHEN HE LEAVES, PT REPORTS WALKING BUT HE HAS NO SHOES AND WEARS SIZE 9. CM WILL PROVIDE PT WITH A BUS PASS AT DISCHARGE. PT HAS DECLINED LONG-TERM PLACEMENT ASSISTANCE, REFUSES TO STAY AT THE [facility] SAYING IT IS LIKE A CORRECTION. CM PROVIDED PT WITH LOCAL RESOURCE INFORMATION. CM TO FOLLOW AND ASSIST NEEDED. Longshore Equipment Operator: Bradly Tolentino DCPIA - Discharge Planning Initial Assessment Updated by [id number]: Bradly Tolentino on 06/06/18 5:57 pm * Is the patient Alert and Oriented? Yes * How many steps to enter\\exit or inside your home? NONE * PCP NONE * Pharmacy NONE * Preadmission Environment Homeless * Other Environment HOMELESS, REPORTS LIVING IN "[facility]" * Facility Name NONE * ADLs Independent * Equipment None * Other Equipment NO MEDICAL EQUIPMENT PROVIDER PREFERENCE * List name and contact numbers for known caregivers / representatives who currently or will assist patient after discharge: NONE PER PATIENT * Verbal permission to speak to the caregivers and representatives has been obtained from the patient. N/A * Community resources currently utilized None * Please name any agencies selected above. NONE * Additional services required to return to the preadmission environment? No * Can the patient safely return to the preadmission environment? Yes * Has this patient been hospitalized within the prior 30 days at any hospital? No Last DP export: 06/10/18 3:39 p Patient Name: BERENICE MEDEIROS Page [id number] at [id number] All edits/amendments must be made on the electronic document DICTATION DATE: 06/11/18 08 COMPLIANCE EXAMINER: SHANNAN 06/11/18 08 RPT#: [id number] DC DATE:06/10/18 STATUS: DIS IN [facility] [address] [place] [address] END OF REPORT
== END 2018-06-10 17:15 | disposition home or self-care (01) | DRG 682 ==
LOC: D.ER 21:15 → OBSVTIME 06-06 00:50 → D.M2 06-06 00:50
PROVIDERS: Family Medicine; ADMIT Family Medicine
DX: N17.9 Acute kidney failure, unspecified (principal); E43 Unspecified severe protein-calorie malnutrition; M62.82 Rhabdomyolysis; Z68.1 Body mass index [BMI] 19.9 or less, adult; M54.9 Dorsalgia, unspecified; G89.29 Other chronic pain; I10 Essential (primary) hypertension; Z59.0 Homelessness; J44.9 Chronic obstructive pulmonary disease, unspecified; F17.210 Nicotine dependence, cigarettes, uncomplicated; G25.81 Restless legs syndrome; F41.9 Anxiety disorder, unspecified

== ENCOUNTER 2018-08-02 09:46 | Emergency (ER) | payer MEDICAID ==
[~2018-08-02] VITALS: Ht 160 cm; Wt 54.5 kg
[~2018-08-02 09:46] MED LIST changes: +NEURONTIN 300300 MG PO
[2018-08-02 09:49] VITALS: Ht 160 cm; Wt 54.5 kg
[2018-08-02 10:12] LABS: APPEARANCE CLEAR (CLEAR); BILIRUBIN NEGATIVE (NEGATIVE); COLOR YELLOW (YELLOW); GLUCOSE NEGATIVE (NEGATIVE); KETONE NEGATIVE (NEGATIVE); NITRITE NEGATIVE (NEGATIVE); PROTEIN TRACE mg/dL (NEGATIVE); SPECIFIC GRAVITY 1.015 (1.005-1.020); UROBILINOGEN NORMAL (NORMAL)
[2018-08-02 10:14] LABS: BACTERIA FEW /hpf (NONE SEEN); EPITHELIAL CELLS 0-5 /hpf (0-5); RED CELLS - URINE 0-5 /hpf (0-5); WHITE CELLS - URINE 0-5 /hpf (0-5)
[2018-08-02 10:16] LABS: BASOPHILS 0.5 % (0-2); HEMATOCRIT 49.3 % (42.0-54.0); HEMOGLOBIN 16.9 g/dL (13.5-17.5); IMMATURE GRANULOCYTES 0.3 % (0-5); LYMPHOCYTES 20.6 % (15-50); MCH 32.1 pg (26.0-34.0); MCHC 34.3 g/dL (31.0-37.0); MCV 93.7 fL (80.0-100.0); MEAN PLATELET VOLUME 10.4 fL (7.4-10.4); MONOCYTES 4.7 % (2-11); NEUTROPHILS 70.9 % (40-80); PLATELET COUNT 282 10x3/uL (130-400); RBC 5.26 10x6/uL (4.20-6.10); RDW 13.1 % (11.5-14.5); WBC 7.4 10x3/uL (4.8-10.8)
[2018-08-02 10:38] LABS: ALKALINE PHOSPHATASE 135 U/L (46-116); ALT (SGPT) 18 U/L (10-68); AMYLASE - SERUM 71 U/L (25-115); BILIRUBIN - TOTAL 0.31 mg/dL (0.2-1.3); CALC OSMOLALITY 273 mosm/kg (275-300); CALCIUM 8.5 mg/dL (8.5-10.1); CARBON DIOXIDE 25.2 mmol/L (21.0-32.0); CHLORIDE - SERUM 101 mmol/L (98-107); CREATININE - SERUM 1.1 mg/dL (0.6-1.3); GLUCOSE 99 mg/dL (74-106); LIPASE 153 U/L (73-393); POTASSIUM - SERUM 3.8 mmol/L (3.5-5.1); PROTEIN - SERUM 8.5 g/dL (6.4-8.2); SODIUM 135 mmol/L (136-145); UREA NITROGEN 23 mg/dL (7-18); eGFR NON AFRICAN AMERICAN 83 mL/min (90-120)
[2018-08-02] MEDS ORDERED: IMODIUM2 MG PO (11:08)
[2018-08-02] MEDS ORDERED: PHENERGAN25 M1 PO (11:08)
[2018-08-02 13:20] VITALS: BP 118/72
== END 2018-08-02 13:20 | disposition home or self-care (01) ==
LOC: D.ER 09:46
PROVIDERS: Emergency Medicine
DX: A08.4 Viral intestinal infection, unspecified (principal); E86.0 Dehydration; E46 Unspecified protein-calorie malnutrition; R11.2 Nausea with vomiting, unspecified

== ENCOUNTER 2018-08-02 13:49 | Emergency (ER) | payer MEDICAID ==
[~2018-08-02] VITALS: Ht 160 cm; Wt 45.5 kg
[~2018-08-02 13:49] MED LIST changes: +IMODIUM2 MG PO; +PHENERGAN25 M1 PO
[2018-08-02 13:55] VITALS: BP 124/90; Ht 160 cm; Wt 45.5 kg
== END 2018-08-02 17:11 | disposition left against medical advice (07) ==
LOC: D.ER 13:49
DX: R11.10 Vomiting, unspecified (principal); R19.7 Diarrhea, unspecified

== ENCOUNTER 2018-08-02 23:55 | Emergency (ER) | payer MEDICAID ==
[~2018-08-02] VITALS: Ht 160 cm; Wt 49.9 kg
[2018-08-02 23:56] VITALS: Ht 160 cm; Wt 49.9 kg
[2018-08-03 02:03] VITALS: BP 120/84
== END 2018-08-03 02:03 | disposition home or self-care (01) ==
LOC: D.ER 23:55
PROVIDERS: Family Medicine
DX: A08.4 Viral intestinal infection, unspecified (principal); E86.0 Dehydration; E46 Unspecified protein-calorie malnutrition; R11.2 Nausea with vomiting, unspecified